=== PATIENT | female | born 1950 | race Caucasian/White ===

== ENCOUNTER 2018-07-20 17:25 | Inpatient (IN) ==
[2018-07-20] MEDS ORDERED: SODIUM CHLORIDE 0.9% 1,000 ML IV STA (18:30)
[2018-07-20 20:08] LABS: Basophils % 0.2 % (0.0-0.8); Hematocrit 32.7 VOL% (35.7-47.0); Hemoglobin 11.8 GM/DL (12.0-16.0); Immature Granulocytes Absolute 0.17 #; Lymphocytes % 5.9 % (21.3-54.2); Mean Corpuscular HGB Conc 36.1 GM/DL (32-36); Mean Corpuscular Hemoglobin 30 PG (27-34); Mean Corpuscular Volume 82.6 FL (87-102); Mean Platelet Volume 10.3 FL (9.6-12.0); Monocytes % 5.9 % (1.7-12.7); Neutrophils # 15.3 10*3/uL (1.4-7.4); Platelet Count 165 T/CUMM (130-400); Red Blood Count 3.96 MC/CUMM (3.8-5.5); Red Cell Distribution Width 14.1 % (9.3-17.3); White Blood Count 17.5 T/CUMM (4-12)
[2018-07-20 20:41] LABS: Albumin 2.8 G/DL (3.4-5.0); Calcium 8.1 MG/DL (8.5-10.1); Osmolality,Calculated 289.8 MOS/KG (273-304); Total Protein 6.1 G/DL (6.4-8.3)
[2018-07-20 20:57] LABS: Apearance,Urine CLEAR (Clear); Bacteria,Urine Occasional /HPF (Few); Bilirubin,Urine Negative (Negative); Blood, Urine Small mg/dL (Negative); Glucose,Urine (UA) Negative (Negative); Hyaline Casts,Urine 3 /LPF (0-3); Ketones,Urine Negative (Negative); Mucus,Urine Occasional /LPF (Occasional); Nitrite,Urine Negative (Negative); Protein,Urine Negative; RBC,Urine 1 /HPF (0-4); Urine Color Straw (Yellow); Urine Specific Gravity 1.005 (1.001-1.035); Urine Urobilinogen < 2.0 EU/DL (0.2-1.0); WBC,Urine 1 /HPF (0-6)
[2018-07-20] MEDS ORDERED: POTASSIUM CHLORIDE INJ 40 MEQ in DEXTROSE 5% LACTATED RINGERS 1,000 ML IV SCH (21:00)
[2018-07-20] MEDS ORDERED: DILTIAZEM 50 MG/10 ML VIAL IV STA (23:10)
[2018-07-20] MEDS ORDERED: SODIUM CHLOR 0.9% KCL 40 MEQ 40 MEQ/1,000 ML BAG IV SCH (23:59)
[2018-07-20] MEDS ORDERED: ACETAMINOPHEN 325 MG TABLET PO PRN (23:59)
[2018-07-20] MEDS ORDERED: ONDANSETRON 4 MG/2 ML VIAL IV PRN (23:59)
[2018-07-21] MEDS ORDERED: SODIUM CHLORIDE 0.9% 1,000 ML IV SCH (05:30)
[2018-07-21 05:40] LABS: Basophils % 0.2 % (0.0-0.8); Eosinophils % 0.2 % (0.00-10.9); Hematocrit 32.6 VOL% (35.7-47.0); Hemoglobin 11.7 GM/DL (12.0-16.0); Immature Granulocytes % 0.6 %; Immature Granulocytes Absolute 0.06 #; Lymphocytes # 1.1 10*3/uL (1.4-4.0); Lymphocytes % 11.4 % (21.3-54.2); Mean Corpuscular HGB Conc 35.9 GM/DL (32-36); Mean Corpuscular Hemoglobin 30 PG (27-34); Mean Corpuscular Volume 82.5 FL (87-102); Mean Platelet Volume 10.5 FL (9.6-12.0); Monocytes # 0.8 10*3/uL (0.11-0.8); Monocytes % 7.7 % (1.7-12.7); Neutrophils # 7.9 10*3/uL (1.4-7.4); Neutrophils % 79.9 % (38.7-73.9); Platelet Count 146 T/CUMM (130-400); Red Blood Count 3.95 MC/CUMM (3.8-5.5); White Blood Count 9.9 T/CUMM (4-12)
[2018-07-21 05:53] LABS: Albumin 2.5 G/DL (3.4-5.0); Bilirubin,Total 1.2 MG/DL (0.2-1.0); Calcium 7.8 MG/DL (8.5-10.1); Osmolality,Calculated 280.2 MOS/KG (273-304); Risk Ratio 4.19; Total Protein 5.7 G/DL (6.4-8.3); VLDL CHOLESTEROL 19.8 MG/DL
[2018-07-21 05:56] LABS: Potassium 1.6 MMOL/L (3.5-5.1)
[2018-07-21 06:01] LABS: Thyroid Stimulating Hormone 0.128 uIU/ml (0.358-3.74)
[2018-07-21] MEDS ORDERED: POTASSIUM CHLORIDE 20 MEQ TABLET PO PRN (06:21)
[2018-07-21] MEDS: LEVOTHYROXINE 100 MCG TABLET PO SCH (06:35)
[2018-07-21] MEDS ORDERED: MAGNESIUM SULF IV ONE (08:00)
[2018-07-21] MEDS ORDERED: POTASSIUM CHLORIDE IV ONE (08:00)
[2018-07-21] MEDS ORDERED: [UNRECOGNIZED DRUG - OTHER] IV ONE (08:00)
[2018-07-21] MEDS ORDERED: NYSTATIN 500,000 UNIT/5 ML UDCUP SWISH/SWAL SCH (09:00)
[2018-07-21] MEDS: CLOTRIMAZOLE 10 MG TROCHE PO SCH ×4 (09:48→21:09)
[2018-07-21] MEDS: ENOXAPARIN 40 MG/0.4 ML SYRINGE SUBCUT SCH (09:48)
[2018-07-21] MEDS: SOLIFENACIN 5 MG TABLET PO SCH (09:48)
[2018-07-21] MEDS: MAGNESIUM SULFATE 1 GM/2 ML VIAL IM SCH ×2 (11:59→18:31)
[2018-07-21] MEDS ORDERED: POTASSIUM CHLORIDE 20 MEQ TABLET PO SCH (12:00)
[2018-07-21] MEDS: POTASSIUM CHLORIDE 20 MEQ/15 ML UDCUP PO SCH ×3 (12:01→21:09)
[2018-07-22] MEDS: POTASSIUM CHLORIDE 20 MEQ/15 ML UDCUP PO SCH ×4 (00:41→17:05)
[2018-07-22 04:57] LABS: Osmolality,Calculated 297.7 MOS/KG (273-304); Potassium 3.3 MMOL/L (3.5-5.1)
[2018-07-22] MEDS: CLOTRIMAZOLE 10 MG TROCHE PO SCH ×5 (05:49→21:02)
[2018-07-22] MEDS: LEVOTHYROXINE 100 MCG TABLET PO SCH (05:49)
[2018-07-22] MEDS ORDERED: POTASSIUM CHLORIDE 20 MEQ TABLET PO SCH (06:30)
[2018-07-22] MEDS: ENOXAPARIN 40 MG/0.4 ML SYRINGE SUBCUT SCH (09:48)
[2018-07-22] MEDS: SOLIFENACIN 5 MG TABLET PO SCH (09:50)
[2018-07-23 04:45] LABS: Calcium 7.3 MG/DL (8.5-10.1); Osmolality,Calculated 276.7 MOS/KG (273-304); Potassium 3.4 MMOL/L (3.5-5.1)
[2018-07-23] MEDS ORDERED: PROPOFOL 200 MG/20 ML VIAL IV ONE (07:00)
[2018-07-23] MEDS ORDERED: ETOMIDATE 20 MG/10 ML VIAL IV ONE (07:00)
[2018-07-23] MEDS ORDERED: LIDOCAINE 2% 5 ML VIAL ONE (07:00)
[2018-07-23] MEDS: CLOTRIMAZOLE 10 MG TROCHE PO SCH ×2 (08:11→10:00)
[2018-07-23] MEDS ORDERED: SODIUM CHLORIDE 0.9% 500 ML IV ONE (11:19)
[2018-07-23] MEDS ORDERED: FLUCONAZOLE 200 MG TABLET PO ONE (12:00)
[2018-07-23] MEDS: SODIUM CHLORIDE 0.9% 1,000 ML IV SCH (12:03)
[2018-07-23] MEDS: SOLIFENACIN 5 MG TABLET PO SCH (12:06)
[2018-07-23] MEDS: LEVOTHYROXINE 100 MCG TABLET PO SCH (12:07)
[2018-07-23] MEDS: PANTOPRAZOLE 40 MG TABLET PO SCH (12:07)
[2018-07-23] MEDS: NYSTATIN 500,000 UNIT/5 ML UDCUP SWISH/SWAL SCH ×3 (13:52→21:17)
[2018-07-23] MEDS: POTASSIUM CHLORIDE 10 MEQ TABLET PO SCH (21:13)
[2018-07-24] MEDS: SODIUM CHLORIDE 0.9% 1,000 ML IV SCH ×2 (01:01→17:16)
[2018-07-24 04:52] LABS: Basophils % 0.3 % (0.0-0.8); Eosinophils # 0.2 10*3/uL (0.0-0.87); Hematocrit 30.6 VOL% (35.7-47.0); Hemoglobin 10.1 GM/DL (12.0-16.0); Immature Granulocytes % 1.5 %; Immature Granulocytes Absolute 0.12 #; Lymphocytes # 1.5 10*3/uL (1.4-4.0); Mean Corpuscular Hemoglobin 30 PG (27-34); Mean Corpuscular Volume 90.8 FL (87-102); Mean Platelet Volume 11.4 FL (9.6-12.0); Monocytes # 0.4 10*3/uL (0.11-0.8); Monocytes % 4.9 % (1.7-12.7); Neutrophils # 5.7 10*3/uL (1.4-7.4); Neutrophils % 72.3 % (38.7-73.9); Platelet Count 104 T/CUMM (130-400); Red Blood Count 3.37 MC/CUMM (3.8-5.5); Red Cell Distribution Width 15.1 % (9.3-17.3); White Blood Count 7.9 T/CUMM (4-12)
[2018-07-24 05:09] LABS: Calcium 6.7 MG/DL (8.5-10.1); Osmolality,Calculated 274.7 MOS/KG (273-304); Potassium 2.9 MMOL/L (3.5-5.1)
[2018-07-24] MEDS ORDERED: POTASSIUM CHLORIDE RIDER 10 MEQ in PREMIX 1 EACH IV PRN (05:37)
[2018-07-24] MEDS ORDERED: MAGNESIUM SULF RIDER 2 GM in PREMIX 1 EACH IV PRN (05:40)
[2018-07-24] MEDS ORDERED: MAGNESIUM SULF RIDER 4 GM in PREMIX 1 EACH IV PRN (05:40)
[2018-07-24] MEDS: LEVOTHYROXINE 75 MCG TABLET PO SCH (05:51)
[2018-07-24] MEDS: SOLIFENACIN 5 MG TABLET PO SCH (10:20)
[2018-07-24] MEDS: FLUCONAZOLE 100 MG TABLET PO SCH (10:20)
[2018-07-24] MEDS: PANTOPRAZOLE 40 MG TABLET PO SCH (10:20)
[2018-07-24] MEDS: NYSTATIN 500,000 UNIT/5 ML UDCUP SWISH/SWAL SCH ×4 (10:20→20:33)
[2018-07-24] MEDS: POTASSIUM CHLORIDE 10 MEQ TABLET PO SCH ×3 (10:20→20:33)
[2018-07-24] MEDS ORDERED: MAGNESIUM SULF INJ 3 GM in SODIUM CHLORIDE 0.9% 100 ML IV ONE (11:00)
[2018-07-24] MEDS ORDERED: TUBERCULIN SKIN TEST 0.1 ML SYRINGE INTRADERM ONE (11:00)
[2018-07-24] MEDS ORDERED: POTASSIUM CHLORIDE 20 MEQ/15 ML UDCUP PO ONE ×2 (12:00→16:00)
[2018-07-24] MEDS: MAGNESIUM OXIDE 400 MG TABLET PO SCH ×2 (16:25→20:33)
[2018-07-25] MEDS: SODIUM CHLORIDE 0.9% 1,000 ML IV SCH (05:19)
[2018-07-25] MEDS: LEVOTHYROXINE 75 MCG TABLET PO SCH (05:55)
[2018-07-25 06:46] LABS: Calcium 7.1 MG/DL (8.5-10.1); Osmolality,Calculated 276.5 MOS/KG (273-304); Potassium 3.7 MMOL/L (3.5-5.1)
[2018-07-25] MEDS: SOLIFENACIN 5 MG TABLET PO SCH (09:20)
[2018-07-25] MEDS: FLUCONAZOLE 100 MG TABLET PO SCH (09:20)
[2018-07-25] MEDS: MAGNESIUM OXIDE 400 MG TABLET PO SCH (09:21)
[2018-07-25] MEDS: POTASSIUM CHLORIDE 10 MEQ TABLET PO SCH (09:21)
[2018-07-25] MEDS: PANTOPRAZOLE 40 MG TABLET PO SCH (09:22)
[2018-07-25] MEDS: NYSTATIN 500,000 UNIT/5 ML UDCUP SWISH/SWAL SCH (09:23)
[2018-07-25 11:25] VITALS: BP 95/45
== END 2018-07-25 14:23 | disposition swing bed (61) | DRG 641 ==
LOC: EDBD → EDUNIT# → N.ED 17:25 → N.EDINP 22:47 → SUATTDRO 22:47 → N.2E 23:41
PROVIDERS: ADMIT Internal Medicine Cardiovascular Disease; ATTEND Internal Medicine

== ENCOUNTER 2018-09-02 20:08 | Inpatient (IN) ==
[2018-09-02] MEDS ORDERED: PANTOPRAZOLE 40 MG VIAL IV STA (20:27)
[2018-09-02] MEDS ORDERED: MORPHINE 4 MG/1 ML VIAL IV STA (20:27)
[2018-09-02] MEDS ORDERED: SODIUM CHLORIDE 0.9% 500 ML IV STA (20:27)
[2018-09-02] MEDS ORDERED: ONDANSETRON 4 MG/2 ML VIAL IV STA (20:27)
[2018-09-02 21:09] LABS: Basophils % 0.2 % (0.0-0.8); Eosinophils # 0.1 10*3/uL (0.0-0.87); Eosinophils % 0.9 % (0.00-10.9); Hematocrit 31.2 VOL% (35.7-47.0); Hemoglobin 10.4 GM/DL (12.0-16.0); Immature Granulocytes % 1.5 %; Immature Granulocytes Absolute 0.19 #; Lymphocytes # 1.1 10*3/uL (1.4-4.0); Lymphocytes % 8.2 % (21.3-54.2); Mean Corpuscular HGB Conc 33.3 GM/DL (32-36); Mean Corpuscular Volume 88.1 FL (87-102); Mean Platelet Volume 9.3 FL (9.6-12.0); Monocytes % 5.3 % (1.7-12.7); Neutrophils % 83.9 % (38.7-73.9); Platelet Count 271 T/CUMM (130-400); Red Blood Count 3.54 MC/CUMM (3.8-5.5); Red Cell Distribution Width 14.3 % (9.3-17.3); White Blood Count 12.9 T/CUMM (4-12)
[2018-09-02 21:17] LABS: Apearance,Urine CLEAR (Clear); Bacteria,Urine Occasional /HPF (Few); Bilirubin,Urine Negative (Negative); Blood, Urine Small mg/dL (Negative); Glucose,Urine (UA) 50 mg/dL (Negative); Hyaline Casts,Urine 5 /LPF (0-3); Ketones,Urine 5 mg/dL (Negative); Mucus,Urine Few /LPF (Occasional); Nitrite,Urine Negative (Negative); Protein,Urine Negative; RBC,Urine <1 /HPF (0-4); Urine Color Yellow (Yellow); Urine Specific Gravity 1.012 (1.001-1.035); Urine Urobilinogen < 2.0 EU/DL (0.2-1.0); WBC,Urine 1 /HPF (0-6)
[2018-09-02 21:34] LABS: Bilirubin,Total 0.4 MG/DL (0.2-1.0); Calcium 8.7 MG/DL (8.5-10.1); Osmolality,Calculated 276.5 MOS/KG (273-304); Total Protein 5.9 G/DL (6.4-8.3)
[2018-09-03] MEDS ORDERED: MORPHINE 4 MG/1 ML VIAL IV PRN (00:11)
[2018-09-03] MEDS ORDERED: NICOTINE 21 MG/24 HR PATCH TRANSDERM PRN (00:11)
[2018-09-03] MEDS ORDERED: MAGNESIUM SULF RIDER 4 GM in PREMIX 1 EACH IV PRN (00:11)
[2018-09-03] MEDS ORDERED: ONDANSETRON 4 MG/2 ML VIAL IV PRN (00:11)
[2018-09-03] MEDS ORDERED: SODIUM CHLORIDE 0.9% 1,000 ML IV SCH (00:30)
[2018-09-03] MEDS: POTASSIUM CHLORIDE RIDER 10 MEQ in PREMIX 1 EACH IV PRN ×7 (03:32→16:23)
[2018-09-03] MEDS: PANTOPRAZOLE 40 MG VIAL IV SCH ×3 (03:37→20:44)
[2018-09-03 04:44] LABS: Basophils % 0.2 % (0.0-0.8); Eosinophils # 0.1 10*3/uL (0.0-0.87); Eosinophils % 0.9 % (0.00-10.9); Hematocrit 30.6 VOL% (35.7-47.0); Hemoglobin 10.3 GM/DL (12.0-16.0); Immature Granulocytes % 1.2 %; Immature Granulocytes Absolute 0.15 #; Lymphocytes # 0.7 10*3/uL (1.4-4.0); Mean Corpuscular HGB Conc 33.7 GM/DL (32-36); Mean Corpuscular Volume 88.4 FL (87-102); Mean Platelet Volume 9.6 FL (9.6-12.0); Monocytes % 5.5 % (1.7-12.7); Neutrophils % 86.2 % (38.7-73.9); Platelet Count 239 T/CUMM (130-400); Red Blood Count 3.46 MC/CUMM (3.8-5.5); Red Cell Distribution Width 14.3 % (9.3-17.3); White Blood Count 12.2 T/CUMM (4-12)
[2018-09-03 05:31] LABS: Alanine Aminotransferase < 9 U/L (13-56); Albumin 2.7 G/DL (3.4-5.0); Alkaline Phosphatase 78 U/L (45-117); Aspartate Amino Transferase 9 U/L (0-37); Blood Urea Nitrogen 9 MG/DL (7-18); Calcium 8.6 MG/DL (8.5-10.1); Glucose 105 MG/DL (74-106); Total Protein 5.9 G/DL (6.4-8.3)
[2018-09-03] MEDS ORDERED: POTASSIUM CHLORIDE INJ 40 MEQ in SODIUM CHLORIDE 0.9% 1,000 ML IV SCH (07:33)
[2018-09-03] MEDS ORDERED: SODIUM CHLOR 0.9% KCL 40 MEQ 40 MEQ/1,000 ML BAG IV SCH (08:00)
[2018-09-03] MEDS: SODIUM CHLOR 0.9% KCL 20 MEQ 20 MEQ/1,000 ML BAG IV SCH ×2 (11:32→20:44)
[2018-09-04] MEDS: POTASSIUM CHLORIDE RIDER 10 MEQ in PREMIX 1 EACH IV PRN ×2 (02:24→06:34)
[2018-09-04 05:54] LABS: Basophils % 0.2 % (0.0-0.8); Eosinophils # 0.1 10*3/uL (0.0-0.87); Eosinophils % 1.2 % (0.00-10.9); Hematocrit 28.8 VOL% (35.7-47.0); Hemoglobin 9.2 GM/DL (12.0-16.0); Immature Granulocytes % 1.3 %; Immature Granulocytes Absolute 0.13 #; Lymphocytes # 0.7 10*3/uL (1.4-4.0); Lymphocytes % 7.3 % (21.3-54.2); Mean Corpuscular HGB Conc 31.9 GM/DL (32-36); Mean Corpuscular Volume 91.1 FL (87-102); Mean Platelet Volume 9.5 FL (9.6-12.0); Monocytes % 4.9 % (1.7-12.7); Neutrophils % 85.1 % (38.7-73.9); Platelet Count 185 T/CUMM (130-400); Red Blood Count 3.16 MC/CUMM (3.8-5.5); Red Cell Distribution Width 14.6 % (9.3-17.3); White Blood Count 9.9 T/CUMM (4-12)
[2018-09-04] MEDS: SODIUM CHLOR 0.9% KCL 20 MEQ 20 MEQ/1,000 ML BAG IV SCH (06:05)
[2018-09-04 06:12] LABS: Calcium 7.9 MG/DL (8.5-10.1); Osmolality,Calculated 278.1 MOS/KG (273-304)
[2018-09-04 06:24] LABS: Free T4 (Free Thyroxine) 1.44 NG/DL (0.76-1.46); Thyroid Stimulating Hormone 0.204 uIU/ml (0.358-3.74)
[2018-09-04] MEDS: PANTOPRAZOLE 40 MG VIAL IV SCH (08:17)
[2018-09-04] MEDS: POTASSIUM CHLORIDE INJ 40 MEQ in DEXTROSE 5% LACTATED RINGERS 1,000 ML IV SCH ×3 (08:17→23:29)
[2018-09-04] MEDS: FAMOTIDINE 20 MG/2 ML VIAL IV SCH (15:33)
[2018-09-04 16:59] LABS: Apearance,Urine CLEAR (Clear); Bacteria,Urine Occasional /HPF (Few); Bilirubin,Urine Negative (Negative); Blood, Urine Small mg/dL (Negative); Glucose,Urine (UA) Negative (Negative); Hyaline Casts,Urine 7 /LPF (0-3); Ketones,Urine 5 mg/dL (Negative); Mucus,Urine Occasional /LPF (Occasional); Nitrite,Urine Negative (Negative); Protein,Urine Negative; RBC,Urine 3 /HPF (0-4); Squamous Epithelial Cell,Urine Occasional /HPF (0-10); Urine Color Yellow (Yellow); Urine Urobilinogen < 2.0 EU/DL (0.2-1.0); WBC,Urine 4 /HPF (0-6)
[2018-09-05] MEDS: FAMOTIDINE 20 MG/2 ML VIAL IV SCH ×2 (03:13→14:00)
[2018-09-05 06:36] LABS: Calcium 8.1 MG/DL (8.5-10.1); Osmolality,Calculated 291.4 MOS/KG (273-304)
[2018-09-05] MEDS: POTASSIUM CHLORIDE INJ 40 MEQ in DEXTROSE 5% LACTATED RINGERS 1,000 ML IV SCH ×2 (06:46→16:49)
[2018-09-05] MEDS: POTASSIUM CHLORIDE 20 MEQ TABLET PO SCH ×3 (07:30→16:49)
[2018-09-05] MEDS: MAGNESIUM SULF RIDER 2 GM in PREMIX 1 EACH IV PRN (07:30)
[2018-09-05] MEDS ORDERED: MAGNESIUM SULF RIDER 2 GM in PREMIX 1 EACH IV ONE (09:48)
[2018-09-05] MEDS ORDERED: POTASSIUM CHLORIDE 20 MEQ TABLET PO ONE ×2 (13:21→21:00)
[2018-09-05] MEDS ORDERED: POTASSIUM PHOSPHATE 30 MMOL in SODIUM CHLORIDE 0.9% 250 ML IV ONE (15:00)
[2018-09-05] MEDS ORDERED: ACETAMINOPHEN 325 MG TABLET PO PRN (16:03)
[2018-09-05] MEDS: DEXT 5% NACL 0.45% KCL 20 MEQ 20 MEQ/1,000 ML BAG IV SCH (17:56)
[2018-09-05] MEDS: SIMVASTATIN 20 MG TABLET PO SCH (20:47)
[2018-09-06] MEDS: FAMOTIDINE 20 MG/2 ML VIAL IV SCH ×2 (03:20→14:22)
[2018-09-06] MEDS: LEVOTHYROXINE 75 MCG TABLET PO SCH (05:56)
[2018-09-06 06:02] LABS: Basophils % 0.4 % (0.0-0.8); Eosinophils # 0.1 10*3/uL (0.0-0.87); Eosinophils % 0.8 % (0.00-10.9); Hematocrit 30.7 VOL% (35.7-47.0); Hemoglobin 10.2 GM/DL (12.0-16.0); Immature Granulocytes % 1.1 %; Immature Granulocytes Absolute 0.09 #; Lymphocytes # 0.7 10*3/uL (1.4-4.0); Lymphocytes % 7.8 % (21.3-54.2); Mean Corpuscular HGB Conc 33.2 GM/DL (32-36); Mean Corpuscular Volume 89.8 FL (87-102); Mean Platelet Volume 10.3 FL (9.6-12.0); Neutrophils % 85.9 % (38.7-73.9); Platelet Count 199 T/CUMM (130-400); Red Blood Count 3.42 MC/CUMM (3.8-5.5); Red Cell Distribution Width 15.2 % (9.3-17.3); White Blood Count 8.6 T/CUMM (4-12)
[2018-09-06 06:31] LABS: Calcium 7.8 MG/DL (8.5-10.1); Osmolality,Calculated 288.6 MOS/KG (273-304)
[2018-09-06] MEDS ORDERED: POTASSIUM CHLORIDE INJ 40 MEQ in DEXTROSE 5% NACL 0.22% 1,000 ML IV SCH (07:00)
[2018-09-06] MEDS: POTASSIUM CHLORIDE 20 MEQ TABLET PO SCH ×4 (07:42→20:40)
[2018-09-06] MEDS: DEXT 5% NACL 0.45% KCL 20 MEQ 20 MEQ/1,000 ML BAG IV SCH (07:43)
[2018-09-06] MEDS ORDERED: POTASSIUM CHLORIDE 20 MEQ TABLET PO SCH (15:00)
[2018-09-06 15:36] LABS: Calcium 7.5 MG/DL (8.5-10.1)
[2018-09-06] MEDS ORDERED: POTASSIUM CHLORIDE 20 MEQ TABLET PO ONE (15:40)
[2018-09-06] MEDS: SIMVASTATIN 20 MG TABLET PO SCH (20:40)
[2018-09-07] MEDS: FAMOTIDINE 20 MG/2 ML VIAL IV SCH ×2 (03:56→14:37)
[2018-09-07 05:20] LABS: Basophils % 0.3 % (0.0-0.8); Eosinophils # 0.1 10*3/uL (0.0-0.87); Eosinophils % 1.4 % (0.00-10.9); Hematocrit 32.3 VOL% (35.7-47.0); Hemoglobin 10.1 GM/DL (12.0-16.0); Immature Granulocytes % 1.4 %; Immature Granulocytes Absolute 0.12 #; Mean Corpuscular HGB Conc 31.3 GM/DL (32-36); Mean Corpuscular Volume 93.6 FL (87-102); Mean Platelet Volume 9.8 FL (9.6-12.0); Monocytes % 4.5 % (1.7-12.7); Neutrophils % 80.4 % (38.7-73.9); Platelet Count 201 T/CUMM (130-400); Red Blood Count 3.45 MC/CUMM (3.8-5.5); Red Cell Distribution Width 15.5 % (9.3-17.3); White Blood Count 8.6 T/CUMM (4-12)
[2018-09-07 05:42] LABS: Calcium 7.7 MG/DL (8.5-10.1); Osmolality,Calculated 286.6 MOS/KG (273-304)
[2018-09-07] MEDS: LEVOTHYROXINE 75 MCG TABLET PO SCH (05:55)
[2018-09-07] MEDS: MAGNESIUM SULF RIDER 2 GM in PREMIX 1 EACH IV PRN (10:03)
[2018-09-07] MEDS: POTASSIUM CHLORIDE 20 MEQ TABLET PO SCH ×2 (10:03→20:39)
[2018-09-07 17:09] LABS: Sodium 24 Hr Ur Result 83 MMOL/L (40-220); Total Volume,Urine 600 ML (400-2000)
[2018-09-07] MEDS: SIMVASTATIN 20 MG TABLET PO SCH (20:39)
[2018-09-08] MEDS: LEVOTHYROXINE 75 MCG TABLET PO SCH (05:50)
[2018-09-08 07:13] LABS: Basophils % 0.2 % (0.0-0.8); Eosinophils # 0.1 10*3/uL (0.0-0.87); Eosinophils % 1.1 % (0.00-10.9); Hematocrit 30.9 VOL% (35.7-47.0); Hemoglobin 9.7 GM/DL (12.0-16.0); Immature Granulocytes % 1.3 %; Immature Granulocytes Absolute 0.12 #; Lymphocytes # 1.2 10*3/uL (1.4-4.0); Lymphocytes % 12.7 % (21.3-54.2); Mean Corpuscular HGB Conc 31.4 GM/DL (32-36); Mean Corpuscular Volume 92.8 FL (87-102); Mean Platelet Volume 9.6 FL (9.6-12.0); Monocytes % 4.6 % (1.7-12.7); Neutrophils % 80.1 % (38.7-73.9); Platelet Count 177 T/CUMM (130-400); Red Blood Count 3.33 MC/CUMM (3.8-5.5); Red Cell Distribution Width 15.1 % (9.3-17.3); White Blood Count 9.3 T/CUMM (4-12)
[2018-09-08 07:35] LABS: Band Neutrophils 1 % (0-10); Eosinophils 1 % (0-10); Lymphocytes 9 % (20-55); Platelet Estimate Adequate; Segmented Neutrophils 88 % (50-85); Total Cells Counted 100
[2018-09-08 08:35] LABS: Calcium 7.6 MG/DL (8.5-10.1); Osmolality,Calculated 278.1 MOS/KG (273-304)
[2018-09-08] MEDS: POTASSIUM CHLORIDE 20 MEQ TABLET PO SCH ×2 (09:35→22:12)
[2018-09-08] MEDS: FAMOTIDINE 20 MG/2 ML VIAL IV SCH ×2 (09:36→22:12)
[2018-09-08] MEDS: LOPERAMIDE 2 MG CAPSULE PO SCH ×2 (09:46→22:12)
[2018-09-08] MEDS: POTASSIUM CHLORIDE INJ 40 MEQ in SODIUM CHLORIDE 0.45% 1,000 ML IV SCH ×2 (11:20→22:11)
[2018-09-08] MEDS ORDERED: POTASSIUM CHLORIDE 20 MEQ TABLET PO ONE (14:00)
[2018-09-08] MEDS: SIMVASTATIN 20 MG TABLET PO SCH (22:12)
[2018-09-09 05:39] LABS: Basophils % 0.3 % (0.0-0.8); Eosinophils # 0.1 10*3/uL (0.0-0.87); Eosinophils % 1.5 % (0.00-10.9); Hematocrit 29.6 VOL% (35.7-47.0); Hemoglobin 9.4 GM/DL (12.0-16.0); Immature Granulocytes % 1.2 %; Immature Granulocytes Absolute 0.11 #; Lymphocytes # 1.4 10*3/uL (1.4-4.0); Lymphocytes % 14.4 % (21.3-54.2); Mean Corpuscular HGB Conc 31.8 GM/DL (32-36); Mean Corpuscular Volume 93.1 FL (87-102); Mean Platelet Volume 10.3 FL (9.6-12.0); Monocytes % 5.7 % (1.7-12.7); Neutrophils % 76.9 % (38.7-73.9); Platelet Count 182 T/CUMM (130-400); Red Blood Count 3.18 MC/CUMM (3.8-5.5); Red Cell Distribution Width 15.3 % (9.3-17.3); White Blood Count 9.5 T/CUMM (4-12)
[2018-09-09] MEDS: LEVOTHYROXINE 75 MCG TABLET PO SCH (06:01)
[2018-09-09 06:18] LABS: Calcium 7.7 MG/DL (8.5-10.1)
[2018-09-09] MEDS: POTASSIUM CHLORIDE INJ 40 MEQ in SODIUM CHLORIDE 0.45% 1,000 ML IV SCH ×3 (09:11→20:44)
[2018-09-09] MEDS: LOPERAMIDE 2 MG CAPSULE PO SCH (09:11)
[2018-09-09] MEDS: FAMOTIDINE 20 MG/2 ML VIAL IV SCH ×2 (09:11→20:38)
[2018-09-09] MEDS: POTASSIUM CHLORIDE 20 MEQ TABLET PO SCH ×2 (09:11→20:38)
[2018-09-09] MEDS: METOCLOPRAMIDE 10 MG/2 ML VIAL IV SCH (17:28)
[2018-09-09] MEDS: SIMVASTATIN 20 MG TABLET PO SCH (20:38)
[2018-09-10] MEDS: METOCLOPRAMIDE 10 MG/2 ML VIAL IV SCH ×4 (00:45→18:28)
[2018-09-10 05:45] LABS: Basophils % 0.2 % (0.0-0.8); Eosinophils # 0.1 10*3/uL (0.0-0.87); Hematocrit 29.5 VOL% (35.7-47.0); Hemoglobin 9.5 GM/DL (12.0-16.0); Immature Granulocytes % 1.6 %; Immature Granulocytes Absolute 0.15 #; Lymphocytes % 10.9 % (21.3-54.2); Mean Corpuscular HGB Conc 32.2 GM/DL (32-36); Mean Corpuscular Volume 92.8 FL (87-102); Mean Platelet Volume 10.2 FL (9.6-12.0); Monocytes % 4.9 % (1.7-12.7); Neutrophils % 81.4 % (38.7-73.9); Platelet Count 166 T/CUMM (130-400); Red Blood Count 3.18 MC/CUMM (3.8-5.5); Red Cell Distribution Width 15.2 % (9.3-17.3); White Blood Count 9.4 T/CUMM (4-12)
[2018-09-10 06:08] LABS: Calcium 7.5 MG/DL (8.5-10.1); Osmolality,Calculated 274.4 MOS/KG (273-304)
[2018-09-10] MEDS: LEVOTHYROXINE 75 MCG TABLET PO SCH (06:35)
[2018-09-10] MEDS: POTASSIUM CHLORIDE INJ 40 MEQ in SODIUM CHLORIDE 0.45% 1,000 ML IV SCH ×4 (06:36→20:35)
[2018-09-10] MEDS: FAMOTIDINE 20 MG/2 ML VIAL IV SCH ×2 (09:04→20:33)
[2018-09-10] MEDS: POTASSIUM CHLORIDE 20 MEQ TABLET PO SCH ×2 (09:04→20:33)
[2018-09-10] MEDS: MAGNESIUM SULF RIDER 2 GM in PREMIX 1 EACH IV PRN (10:39)
[2018-09-10] MEDS: SIMVASTATIN 20 MG TABLET PO SCH (20:33)
[2018-09-11] MEDS: METOCLOPRAMIDE 10 MG/2 ML VIAL IV SCH ×3 (00:04→11:51)
[2018-09-11] MEDS: POTASSIUM CHLORIDE INJ 40 MEQ in SODIUM CHLORIDE 0.45% 1,000 ML IV SCH (05:42)
[2018-09-11] MEDS: LEVOTHYROXINE 75 MCG TABLET PO SCH (05:43)
[2018-09-11] MEDS: FAMOTIDINE 20 MG/2 ML VIAL IV SCH (10:13)
[2018-09-11] MEDS: POTASSIUM CHLORIDE 20 MEQ TABLET PO SCH (10:13)
[2018-09-11 11:48] VITALS: BP 108/65
== END 2018-09-11 16:20 | DRG 389 ==
LOC: EDUNIT# → EDBD → N.ED 20:08 → N.EDINP 09-03 00:11 → SUATTDRO 09-03 00:11 → N.5E 09-03 01:03
PROVIDERS: ADMIT Internal Medicine; ATTEND Internal Medicine

== ENCOUNTER 2019-05-26 00:39 | Observation (INO) ==
[2019-05-26] MEDS ORDERED: ALUM/MAG/SIMETH/LIDO VISC 1:1 30 ML BOTTLE PO STA (01:06)
[2019-05-26] MEDS ORDERED: SODIUM CHLORIDE 0.9% 500 ML IV STA (01:06)
[2019-05-26] MEDS ORDERED: ONDANSETRON 4 MG/2 ML VIAL IV STA (01:06)
[2019-05-26 01:43] LABS: Basophils % 0.3 % (0.0-0.8); Eosinophils # 0.1 10*3/uL (0.0-0.87); Hematocrit 38.8 VOL% (35.7-47.0); Hemoglobin 13.7 GM/DL (12.0-16.0); Immature Granulocytes % 0.9 %; Immature Granulocytes Absolute 0.09 #; Lymphocytes # 1.2 10*3/uL (1.4-4.0); Mean Corpuscular HGB Conc 35.3 GM/DL (32-36); Mean Corpuscular Volume 87.4 FL (87-102); Mean Platelet Volume 9.8 FL (9.6-12.0); Neutrophils % 78.8 % (38.7-73.9); Platelet Count 154 T/CUMM (130-400); Red Blood Count 4.44 MC/CUMM (3.8-5.5); Red Cell Distribution Width 13.2 % (9.3-17.3); White Blood Count 10.3 T/CUMM (4-12)
[2019-05-26 02:08] LABS: Albumin 3.1 G/DL (3.4-5.0); Bilirubin,Total 0.6 MG/DL (0.2-1.0); Calcium 8.6 MG/DL (8.5-10.1); Osmolality,Calculated 273.1 MOS/KG (273-304); Total Protein 6.6 G/DL (6.4-8.3)
[2019-05-26 02:11] LABS: Apearance,Urine CLEAR (Clear); Bilirubin,Urine Negative (Negative); Blood, Urine Negative (Negative); Glucose,Urine (UA) Negative (Negative); Ketones,Urine Negative (Negative); Nitrite,Urine Negative (Negative); Protein,Urine Negative; RBC,Urine <1 /HPF (0-4); Urine Color Straw (Yellow); Urine Specific Gravity 1.009 (1.001-1.035); Urine Urobilinogen < 2.0 EU/DL (0.2-1.0); WBC,Urine 1 /HPF (0-6)
[2019-05-26] MEDS ORDERED: POTASSIUM CHLORIDE 20 MEQ TABLET PO STA (02:35)
[2019-05-26] MEDS ORDERED: ONDANSETRON 4 MG/2 ML VIAL IV PRN (02:42)
[2019-05-26] MEDS ORDERED: MORPHINE 4 MG/1 ML VIAL IV PRN (02:42)
[2019-05-26] MEDS ORDERED: NICOTINE 21 MG/24 HR PATCH TRANSDERM PRN (02:42)
[2019-05-26] MEDS ORDERED: POTASSIUM CHLORIDE RIDER 10 MEQ in PREMIX 1 EACH IV PRN (02:42)
[2019-05-26] MEDS ORDERED: SODIUM CHLORIDE 0.9% 1,000 ML IV SCH (03:00)
[2019-05-26] MEDS ORDERED: SODIUM PHOSPHATE ENEMA 133 ML BOTTLE RECTAL ONE (06:25)
[2019-05-26] MEDS ORDERED: BISACODYL 5 MG TABLET PO ONE (06:25)
[2019-05-26] MEDS ORDERED: LINACLOTIDE 145 MCG CAPSULE PO SCH (07:30)
[2019-05-26] MEDS ORDERED: ACETAMINOPHEN 325 MG TABLET PO PRN (08:44)
[2019-05-26] MEDS ORDERED: PANTOPRAZOLE 40 MG TABLET PO SCH (09:00)
[2019-05-26] MEDS ORDERED: SOLIFENACIN 5 MG TABLET PO SCH (09:00)
[2019-05-26] MEDS: MAGNESIUM OXIDE 400 MG TABLET PO SCH ×2 (09:50→14:09)
[2019-05-26] MEDS: POTASSIUM CHLORIDE 20 MEQ PACK PO SCH ×2 (09:51→14:09)
[2019-05-26 11:43] VITALS: BP 108/50
[2019-05-26 12:58] LABS: Bilirubin,Total 0.4 MG/DL (0.2-1.0); Calcium 8.4 MG/DL (8.5-10.1); Osmolality,Calculated 273.8 MOS/KG (273-304); Total Protein 6.6 G/DL (6.4-8.3)
[2019-05-26] MEDS ORDERED: LACTULOSE 20 GM/30 ML UDCUP PO ONE (14:01)
[2019-05-26] MEDS ORDERED: SIMVASTATIN 10 MG TABLET PO SCH (21:00)
[2019-05-27] MEDS ORDERED: LEVOTHYROXINE 75 MCG TABLET PO SCH (06:30)
== END 2019-05-26 15:46 ==
LOC: EDUNIT# → N.5E 00:39 → N.ED 00:39 → SUATTDRO 02:42 → N.5E 04:15
PROVIDERS: ADMIT Internal Medicine; ATTEND Internal Medicine

== ENCOUNTER 2019-06-23 20:17 | Inpatient (IN) ==
[2019-06-23] MEDS ORDERED: METOCLOPRAMIDE 10 MG/2 ML VIAL IV STA (20:44)
[2019-06-23] MEDS ORDERED: ONDANSETRON 4 MG/2 ML VIAL IV STA (20:44)
[2019-06-23] MEDS ORDERED: DICYCLOMINE 20 MG/2 ML AMP IM ONE (20:44)
[2019-06-23 21:08] LABS: Alanine Aminotransferase 14 U/L (13-56); Alkaline Phosphatase 60 U/L (45-117); Amylase 33 U/L (25-115); Aspartate Amino Transferase 15 U/L (0-37); Blood Urea Nitrogen 17 MG/DL (7-18); Calcium 7.9 MG/DL (8.5-10.1); Estimated Glom Filtration Rate 54 ML/MIN; Glucose 137 MG/DL (74-106); Osmolality,Calculated 278.7 MOS/KG (273-304); Total Protein 6.3 G/DL (6.4-8.3); Troponin I < 0.015 NG/ML (0.00-0.045)
[2019-06-23] MEDS ORDERED: ALBUTEROL/IPRATROPIUM 3 ML NEB RESP TX STA (21:25)
[2019-06-23] MEDS ORDERED: AMPICILLIN/SULBACTAM 3,000 MG in SODIUM CHLORIDE 0.9% 100 ML IV STA (21:26)
[2019-06-23] MEDS ORDERED: ONDANSETRON 4 MG/2 ML VIAL IV PRN (21:55)
[2019-06-23] MEDS ORDERED: ALBUTEROL 2.5 MG/3 ML NEB RESP TX PRN (21:55)
[2019-06-23] MEDS ORDERED: MORPHINE 4 MG/1 ML VIAL IV PRN (21:55)
[2019-06-23] MEDS ORDERED: guaiFENesin/DM ER 600-30 MG TABLET PO PRN (21:55)
[2019-06-23] MEDS ORDERED: NICOTINE 21 MG/24 HR PATCH TRANSDERM PRN (21:55)
[2019-06-23] MEDS ORDERED: PROMETHAZINE 25 MG/1 ML VIAL IM PRN (21:55)
[2019-06-23] MEDS ORDERED: hydrALAZINE 20 MG/1 ML VIAL IV PRN (21:55)
[2019-06-23] MEDS ORDERED: MAGNESIUM SULF RIDER 2 GM in PREMIX 1 EACH IV PRN (22:00)
[2019-06-23] MEDS ORDERED: SODIUM CHLORIDE 0.9% 2,000 ML IV ONE (23:13)
[2019-06-23] MEDS: MEROPENEM 500 MG in SODIUM CHLORIDE 0.9% 100 ML IV SCH (23:50)
[2019-06-24 00:56] LABS: Basophils % 0.1 % (0.0-0.8); Hematocrit 34.6 VOL% (35.7-47.0); Hemoglobin 11.7 GM/DL (12.0-16.0); Immature Granulocytes Absolute 0.19 #; Lymphocytes # 0.7 10*3/uL (1.4-4.0); Lymphocytes % 3.5 % (21.3-54.2); Mean Corpuscular HGB Conc 33.8 GM/DL (32-36); Mean Corpuscular Volume 90.1 FL (87-102); Mean Platelet Volume 10.6 FL (9.6-12.0); Monocytes % 5.4 % (1.7-12.7); Platelet Count 131 T/CUMM (130-400); Red Blood Count 3.84 MC/CUMM (3.8-5.5); Red Cell Distribution Width 13.7 % (9.3-17.3); White Blood Count 19.3 T/CUMM (4-12)
[2019-06-24] MEDS ORDERED: VANCOMYCIN INJ 1,000 MG in SODIUM CHLORIDE 0.9% 250 ML IV SCH (01:00)
[2019-06-24] MEDS: POTASSIUM CHLORIDE 20 MEQ TABLET PO PRN ×2 (01:03→08:51)
[2019-06-24] MEDS: ACETAMINOPHEN 325 MG TABLET PO PRN ×2 (01:03→22:10)
[2019-06-24 01:10] LABS: Albumin 2.3 G/DL (3.4-5.0); Bilirubin,Total 0.8 MG/DL (0.2-1.0); Calcium 7.6 MG/DL (8.5-10.1); Osmolality,Calculated 280.5 MOS/KG (273-304); Risk Ratio 3.08; Total Protein 5.6 G/DL (6.4-8.3); VLDL CHOLESTEROL 11.4 MG/DL
[2019-06-24 01:18] LABS: Band Neutrophils 1 % (0-10); Lymphocytes 4 % (20-55); Platelet Estimate Normal; Segmented Neutrophils 92 % (50-85); Total Cells Counted 100
[2019-06-24 01:19] LABS: Microcytosis Slight
[2019-06-24 01:20] LABS: Polychromasia Slight
[2019-06-24] MEDS: DEXT 5% NACL 0.9% KCL 40 MEQ 40 MEQ/1,000 ML BAG IV SCH ×2 (01:41→12:00)
[2019-06-24] MEDS: DOCUSATE SODIUM 100 MG CAPSULE PO SCH ×3 (01:54→21:21)
[2019-06-24] MEDS: LACTULOSE 20 GM/30 ML UDCUP PO SCH ×7 (01:54→22:08)
[2019-06-24] MEDS: POTASSIUM CHLORIDE 10 MEQ TABLET PO SCH ×3 (01:58→22:08)
[2019-06-24] MEDS ORDERED: AZITHROMYCIN INJ 500 MG in SODIUM CHLORIDE 0.9% 250 ML IV SCH (02:30)
[2019-06-24] MEDS: MEROPENEM 500 MG in SODIUM CHLORIDE 0.9% 100 ML IV SCH ×3 (05:27→18:48)
[2019-06-24 05:50] LABS: Basophils % 0.1 % (0.0-0.8); Hematocrit 34.6 VOL% (35.7-47.0); Hemoglobin 11.4 GM/DL (12.0-16.0); Immature Granulocytes % 1.1 %; Immature Granulocytes Absolute 0.21 #; Lymphocytes # 0.7 10*3/uL (1.4-4.0); Lymphocytes % 3.7 % (21.3-54.2); Mean Corpuscular HGB Conc 32.9 GM/DL (32-36); Mean Corpuscular Volume 92.3 FL (87-102); Mean Platelet Volume 10.7 FL (9.6-12.0); Neutrophils % 89.1 % (38.7-73.9); Platelet Count 113 T/CUMM (130-400); Red Blood Count 3.75 MC/CUMM (3.8-5.5); White Blood Count 19.1 T/CUMM (4-12)
[2019-06-24 06:16] LABS: Band Neutrophils 11 % (0-10); Lymphocytes 5 % (20-55); Segmented Neutrophils 78 % (50-85); Total Cells Counted 100
[2019-06-24 06:17] LABS: Hypochromasia 1+; Microcytosis Slight
[2019-06-24] MEDS: ENOXAPARIN 40 MG/0.4 ML SYRINGE SUBCUT SCH (08:52)
[2019-06-24] MEDS ORDERED: SODIUM CHLORIDE 0.9% 1,000 ML IV SCH (15:00)
[2019-06-24] MEDS: POTASSIUM CHLORIDE RIDER 10 MEQ in PREMIX 1 EACH IV PRN ×2 (17:40→18:49)
[2019-06-25] MEDS: LACTULOSE 20 GM/30 ML UDCUP PO SCH ×6 (01:06→22:00)
[2019-06-25] MEDS: MEROPENEM 500 MG in SODIUM CHLORIDE 0.9% 100 ML IV SCH ×5 (01:34→18:08)
[2019-06-25 04:49] LABS: Basophils % 0.1 % (0.0-0.8); Eosinophils # 0.2 10*3/uL (0.0-0.87); Eosinophils % 1.1 % (0.00-10.9); Hematocrit 32.9 VOL% (35.7-47.0); Hemoglobin 10.6 GM/DL (12.0-16.0); Immature Granulocytes % 0.8 %; Immature Granulocytes Absolute 0.13 #; Lymphocytes # 1.1 10*3/uL (1.4-4.0); Lymphocytes % 6.6 % (21.3-54.2); Mean Corpuscular HGB Conc 32.2 GM/DL (32-36); Mean Corpuscular Volume 93.2 FL (87-102); Mean Platelet Volume 10.8 FL (9.6-12.0); Monocytes % 6.9 % (1.7-12.7); Neutrophils % 84.5 % (38.7-73.9); Platelet Count 106 T/CUMM (130-400); Red Blood Count 3.53 MC/CUMM (3.8-5.5); Red Cell Distribution Width 14.2 % (9.3-17.3); White Blood Count 16.1 T/CUMM (4-12)
[2019-06-25 05:12] LABS: Calcium 7.4 MG/DL (8.5-10.1); Osmolality,Calculated 280.1 MOS/KG (273-304)
[2019-06-25] MEDS: DOCUSATE SODIUM 100 MG CAPSULE PO SCH ×2 (08:40→21:15)
[2019-06-25] MEDS: POTASSIUM CHLORIDE 20 MEQ TABLET PO PRN ×3 (08:52→15:25)
[2019-06-25] MEDS: POTASSIUM CHLORIDE 10 MEQ TABLET PO SCH ×2 (08:52→21:14)
[2019-06-25] MEDS: ENOXAPARIN 40 MG/0.4 ML SYRINGE SUBCUT SCH (08:52)
[2019-06-26] MEDS: MEROPENEM 500 MG in SODIUM CHLORIDE 0.9% 100 ML IV SCH ×4 (00:40→18:11)
[2019-06-26] MEDS: LACTULOSE 20 GM/30 ML UDCUP PO SCH ×6 (04:46→22:27)
[2019-06-26 04:52] LABS: Basophils % 0.3 % (0.0-0.8); Eosinophils # 0.3 10*3/uL (0.0-0.87); Eosinophils % 2.7 % (0.00-10.9); Hematocrit 34.4 VOL% (35.7-47.0); Hemoglobin 11.3 GM/DL (12.0-16.0); Immature Granulocytes % 1.5 %; Immature Granulocytes Absolute 0.16 #; Lymphocytes # 1.1 10*3/uL (1.4-4.0); Lymphocytes % 10.6 % (21.3-54.2); Mean Corpuscular HGB Conc 32.8 GM/DL (32-36); Mean Corpuscular Volume 92.2 FL (87-102); Mean Platelet Volume 10.9 FL (9.6-12.0); Monocytes % 5.9 % (1.7-12.7); Platelet Count 116 T/CUMM (130-400); Red Blood Count 3.73 MC/CUMM (3.8-5.5); White Blood Count 10.5 T/CUMM (4-12)
[2019-06-26 05:44] LABS: Osmolality,Calculated 279.1 MOS/KG (273-304); Thyroid Stimulating Hormone 6.68 uIU/ml (0.358-3.74)
[2019-06-26] MEDS: ENOXAPARIN 40 MG/0.4 ML SYRINGE SUBCUT SCH (09:41)
[2019-06-26] MEDS: DOCUSATE SODIUM 100 MG CAPSULE PO SCH ×2 (09:42→22:26)
[2019-06-26] MEDS: POTASSIUM CHLORIDE 20 MEQ TABLET PO PRN (09:53)
[2019-06-26] MEDS: POTASSIUM CHLORIDE 10 MEQ TABLET PO SCH ×2 (09:53→22:26)
[2019-06-27] MEDS: MEROPENEM 500 MG in SODIUM CHLORIDE 0.9% 100 ML IV SCH ×3 (00:44→13:28)
[2019-06-27] MEDS: LACTULOSE 20 GM/30 ML UDCUP PO SCH ×6 (03:17→21:25)
[2019-06-27] MEDS: LEVOTHYROXINE 75 MCG TABLET PO SCH (06:43)
[2019-06-27] MEDS: DOCUSATE SODIUM 100 MG CAPSULE PO SCH ×2 (09:22→21:25)
[2019-06-27] MEDS: POTASSIUM CHLORIDE 10 MEQ TABLET PO SCH ×2 (09:22→21:24)
[2019-06-27] MEDS: ENOXAPARIN 40 MG/0.4 ML SYRINGE SUBCUT SCH (09:22)
[2019-06-27] MEDS: metroNIDAZOLE 500 MG TABLET PO SCH ×2 (13:29→21:24)
[2019-06-27] MEDS: CIPROFLOXACIN 250 MG TABLET PO SCH (21:24)
[2019-06-28] MEDS: LACTULOSE 20 GM/30 ML UDCUP PO SCH ×6 (01:36→23:01)
[2019-06-28] MEDS: LEVOTHYROXINE 75 MCG TABLET PO SCH (05:36)
[2019-06-28] MEDS: metroNIDAZOLE 500 MG TABLET PO SCH ×3 (05:36→23:00)
[2019-06-28 07:08] LABS: Basophils # 0.1 10*3/uL (0.0-0.2); Basophils % 0.6 % (0.0-0.8); Eosinophils # 0.3 10*3/uL (0.0-0.87); Eosinophils % 3.2 % (0.00-10.9); Hemoglobin 11.9 GM/DL (12.0-16.0); Immature Granulocytes % 4.9 %; Immature Granulocytes Absolute 0.39 #; Lymphocytes # 1.5 10*3/uL (1.4-4.0); Lymphocytes % 18.5 % (21.3-54.2); Mean Corpuscular Volume 89.1 FL (87-102); Mean Platelet Volume 10.2 FL (9.6-12.0); Monocytes % 6.8 % (1.7-12.7); Platelet Count 144 T/CUMM (130-400); Red Blood Count 3.93 MC/CUMM (3.8-5.5); Red Cell Distribution Width 13.7 % (9.3-17.3); White Blood Count 7.9 T/CUMM (4-12)
[2019-06-28 07:31] LABS: Calcium 8.2 MG/DL (8.5-10.1); Osmolality,Calculated 276.4 MOS/KG (273-304)
[2019-06-28 07:40] LABS: Band Neutrophils 6 % (0-10); Eosinophils 3 % (0-10); Lymphocytes 11 % (20-55); Platelet Estimate Adequate; Segmented Neutrophils 75 % (50-85); Total Cells Counted 100
[2019-06-28 07:41] LABS: Anisocytosis 1+
[2019-06-28] MEDS: POTASSIUM CHLORIDE 10 MEQ TABLET PO SCH ×2 (09:05→23:00)
[2019-06-28] MEDS: DOCUSATE SODIUM 100 MG CAPSULE PO SCH ×2 (09:06→23:01)
[2019-06-28] MEDS: CIPROFLOXACIN 250 MG TABLET PO SCH ×2 (09:06→23:01)
[2019-06-28] MEDS: ENOXAPARIN 40 MG/0.4 ML SYRINGE SUBCUT SCH (09:06)
[2019-06-29] MEDS: LACTULOSE 20 GM/30 ML UDCUP PO SCH ×4 (01:36→14:40)
[2019-06-29 05:08] LABS: Basophils # 0.1 10*3/uL (0.0-0.2); Basophils % 0.6 % (0.0-0.8); Eosinophils # 0.3 10*3/uL (0.0-0.87); Eosinophils % 2.8 % (0.00-10.9); Hematocrit 35.8 VOL% (35.7-47.0); Hemoglobin 11.9 GM/DL (12.0-16.0); Immature Granulocytes % 6.2 %; Immature Granulocytes Absolute 0.58 #; Lymphocytes # 1.6 10*3/uL (1.4-4.0); Lymphocytes % 17.1 % (21.3-54.2); Mean Corpuscular HGB Conc 33.2 GM/DL (32-36); Mean Corpuscular Volume 90.9 FL (87-102); Monocytes % 6.9 % (1.7-12.7); Neutrophils % 66.4 % (38.7-73.9); Platelet Count 159 T/CUMM (130-400); Red Blood Count 3.94 MC/CUMM (3.8-5.5); Red Cell Distribution Width 13.6 % (9.3-17.3); White Blood Count 9.4 T/CUMM (4-12)
[2019-06-29 05:35] LABS: Band Neutrophils 1 % (0-10); Eosinophils 4 % (0-10); Hypochromasia 1+; Lymphocytes 19 % (20-55); Nucleated Red Blood Cells 1 (0-5); Platelet Estimate Adequate; Segmented Neutrophils 69 % (50-85); Total Cells Counted 100
[2019-06-29 05:37] LABS: Calcium 8.2 MG/DL (8.5-10.1); Osmolality,Calculated 278.4 MOS/KG (273-304)
[2019-06-29] MEDS: LEVOTHYROXINE 75 MCG TABLET PO SCH (06:43)
[2019-06-29] MEDS: metroNIDAZOLE 500 MG TABLET PO SCH ×2 (06:43→14:10)
[2019-06-29] MEDS: CIPROFLOXACIN 250 MG TABLET PO SCH (09:42)
[2019-06-29] MEDS: ENOXAPARIN 40 MG/0.4 ML SYRINGE SUBCUT SCH (09:43)
[2019-06-29] MEDS: POTASSIUM CHLORIDE 10 MEQ TABLET PO SCH (09:43)
[2019-06-29] MEDS: DOCUSATE SODIUM 100 MG CAPSULE PO SCH (09:57)
[2019-06-29 12:11] VITALS: BP 111/61
[2019-06-29 23:51] LABS: CDT Result Positive (Negative); CDT Specimen Source STOOL
== END 2019-06-29 14:47 | DRG 871 ==
LOC: EDUNIT# → EDBD → N.ED 20:17 → N.EDINP 21:55 → SUATTDRO 21:55 → N.TELEN 06-24 00:15
PROVIDERS: ADMIT Internal Medicine; ATTEND Internal Medicine

== ENCOUNTER 2019-07-15 15:22 | Inpatient (IN) ==
[2019-07-15] MEDS ORDERED: ACETAMINOPHEN 500 MG TABLET ONE (15:45)
[2019-07-15] MEDS ORDERED: ONDANSETRON 4 MG/2 ML VIAL ONE (15:45)
[2019-07-15] MEDS ORDERED: ONDANSETRON 4 MG/2 ML VIAL IV STA (15:45)
[2019-07-15] MEDS ORDERED: ACETAMINOPHEN 650 MG SUPP RECTAL STA (16:10)
[2019-07-15] MEDS ORDERED: ACETAMINOPHEN 650 MG SUPP RECTAL ONE (16:15)
[2019-07-15 16:48] LABS: Hematocrit 40.2 VOL% (35.7-47.0); Hemoglobin 13.3 GM/DL (12.0-16.0); Immature Granulocytes Absolute 0.03 #; Lymphocytes # 0.5 10*3/uL (1.4-4.0); Lymphocytes % 14.8 % (21.3-54.2); Mean Corpuscular HGB Conc 33.1 GM/DL (32-36); Mean Corpuscular Volume 90.5 FL (87-102); Mean Platelet Volume 11.1 FL (9.6-12.0); Monocytes % 7.7 % (1.7-12.7); Neutrophils % 76.5 % (38.7-73.9); Platelet Count 98 T/CUMM (130-400); Red Blood Count 4.44 MC/CUMM (3.8-5.5); Red Cell Distribution Width 13.9 % (9.3-17.3); White Blood Count 3.1 T/CUMM (4-12)
[2019-07-15] MEDS ORDERED: METOCLOPRAMIDE 10 MG/2 ML VIAL IV STA (16:57)
[2019-07-15] MEDS ORDERED: ALBUTEROL/IPRATROPIUM 3 ML NEB RESP TX STA (16:57)
[2019-07-15] MEDS ORDERED: PANTOPRAZOLE 40 MG VIAL IV STA (16:57)
[2019-07-15] MEDS ORDERED: AZITHROMYCIN INJ 500 MG in SODIUM CHLORIDE 0.9% 250 ML IV STA (16:57)
[2019-07-15 17:00] LABS: Albumin 3.3 G/DL (3.4-5.0); Bilirubin,Total 0.4 MG/DL (0.2-1.0); Calcium 8.5 MG/DL (8.5-10.1)
[2019-07-15 17:03] LABS: Apearance,Urine Slightly Hazy (Clear); Bacteria,Urine Occasional /HPF (Few); Bilirubin,Urine Negative (Negative); Blood, Urine Small mg/dL (Negative); Glucose,Urine (UA) Negative (Negative); Hyaline Casts,Urine 7 /LPF (0-3); Ketones,Urine Negative (Negative); Mucus,Urine Occasional /LPF (Occasional); Nitrite,Urine Negative (Negative); Protein,Urine Negative; RBC,Urine 2 /HPF (0-4); Squamous Epithelial Cell,Urine Occasional /HPF (0-10); Urine Color Yellow (Yellow); Urine Specific Gravity 1.014 (1.001-1.035); Urine Urobilinogen < 2.0 EU/DL (0.2-1.0); WBC,Urine 2 /HPF (0-6)
[2019-07-15] MEDS ORDERED: SODIUM CHLORIDE 0.9% 500 ML IV STA (17:19)
[2019-07-15 17:21] LABS: INR 0.9; PT Patient Result 9.8 SECS (9.6-12.2); Partial Thromboplastin Time 26.6 SECS (20.8-36.0)
[2019-07-15 17:32] LABS: Amylase 44 U/L (25-115); Troponin I < 0.015 NG/ML (0.00-0.045)
[2019-07-15] MEDS ORDERED: VANCOMYCIN INJ 1,000 MG in SODIUM CHLORIDE 0.9% 250 ML IV STA (17:35)
[2019-07-15] MEDS ORDERED: DEXTROSE 10% 250 ML BAG IV PRN (18:41)
[2019-07-15] MEDS ORDERED: GLUCAGON 1 MG VIAL IM PRN (18:41)
[2019-07-15] MEDS ORDERED: DICYCLOMINE 20 MG TABLET PO PRN (18:57)
[2019-07-15] MEDS ORDERED: ENOXAPARIN 40 MG/0.4 ML SYRINGE SUBCUT SCH (21:00)
[2019-07-15] MEDS: MAGNESIUM OXIDE 400 MG TABLET PO SCH (22:24)
[2019-07-15] MEDS: POTASSIUM CHLORIDE 20 MEQ PACK PO SCH (22:25)
[2019-07-15] MEDS: ACETAMINOPHEN 325 MG TABLET PO PRN (23:50)
[2019-07-16] MEDS ORDERED: INFLUENZA VIRUS VACCINE 0.5 ML SYRINGE IM ONE (00:15)
[2019-07-16] MEDS: SIMVASTATIN 10 MG TABLET PO SCH ×2 (00:19→21:33)
[2019-07-16] MEDS: LACTULOSE 20 GM/30 ML UDCUP PO SCH ×2 (00:19→09:40)
[2019-07-16] MEDS: POTASSIUM CHLORIDE 8 MEQ CAPSULE PO SCH ×2 (00:19→09:40)
[2019-07-16] MEDS: HYDROXYCHLOROQUINE 200 MG TABLET PO SCH ×3 (00:19→21:33)
[2019-07-16] MEDS: ZINC OXIDE PASTE 113 GM TUBE TOP PRN (06:18)
[2019-07-16] MEDS: LEVOTHYROXINE 75 MCG TABLET PO SCH (06:18)
[2019-07-16] MEDS: ACETAMINOPHEN 325 MG TABLET PO PRN ×4 (06:18→21:33)
[2019-07-16] MEDS: PANTOPRAZOLE 40 MG TABLET PO SCH (09:40)
[2019-07-16] MEDS: MAGNESIUM OXIDE 400 MG TABLET PO SCH (09:40)
[2019-07-16] MEDS: SOLIFENACIN 5 MG TABLET PO SCH (09:40)
[2019-07-16] MEDS: metOLazone 2.5 MG TABLET PO SCH (09:40)
[2019-07-16] MEDS: LINACLOTIDE 145 MCG CAPSULE PO SCH (09:40)
[2019-07-16] MEDS: ZINC SULFATE 220 MG CAPSULE PO SCH (09:40)
[2019-07-16] MEDS: POTASSIUM CHLORIDE 20 MEQ PACK PO SCH ×3 (10:00→21:33)
[2019-07-16 10:20] LABS: Eosinophils % 0.4 % (0.00-10.9); Hematocrit 37.9 VOL% (35.7-47.0); Hemoglobin 12.6 GM/DL (12.0-16.0); Immature Granulocytes % 1.1 %; Immature Granulocytes Absolute 0.03 #; Lymphocytes # 0.6 10*3/uL (1.4-4.0); Lymphocytes % 21.9 % (21.3-54.2); Mean Corpuscular HGB Conc 33.2 GM/DL (32-36); Mean Corpuscular Volume 89.2 FL (87-102); Mean Platelet Volume 9.7 FL (9.6-12.0); Monocytes % 7.5 % (1.7-12.7); Neutrophils % 69.1 % (38.7-73.9); Platelet Count 84 T/CUMM (130-400); Red Blood Count 4.25 MC/CUMM (3.8-5.5); Red Cell Distribution Width 13.8 % (9.3-17.3); White Blood Count 2.7 T/CUMM (4-12)
[2019-07-16] MEDS ORDERED: SODIUM CHLORIDE 0.9% 1,000 ML IV SCH (10:30)
[2019-07-16 10:37] LABS: Ferritin 882.1 ng/ml (8-252)
[2019-07-16 10:41] LABS: Albumin 2.9 G/DL (3.4-5.0); Bilirubin,Total 0.5 MG/DL (0.2-1.0); Calcium 8.1 MG/DL (8.5-10.1); Osmolality,Calculated 275.5 MOS/KG (273-304); Total Protein 5.8 G/DL (6.4-8.3)
[2019-07-16 10:42] LABS: Platelet Estimate Decreased
[2019-07-16] MEDS ORDERED: MAGNESIUM SULF RIDER 4 GM in PREMIX 1 EACH IV PRN (10:48)
[2019-07-16] MEDS ORDERED: MAGNESIUM SULF RIDER 2 GM in PREMIX 1 EACH IV PRN (10:48)
[2019-07-16] MEDS ORDERED: AZITHROMYCIN INJ 250 MG in SODIUM CHLORIDE 0.9% 150 ML IV SCH (16:00)
[2019-07-17] MEDS: ZINC OXIDE PASTE 113 GM TUBE TOP PRN (04:40)
[2019-07-17] MEDS: ACETAMINOPHEN 325 MG TABLET PO PRN ×2 (04:40→09:18)
[2019-07-17 05:39] LABS: Hematocrit 38.7 VOL% (35.7-47.0); Hemoglobin 12.7 GM/DL (12.0-16.0); Immature Granulocytes Absolute 0.03 #; Lymphocytes # 0.6 10*3/uL (1.4-4.0); Lymphocytes % 20.7 % (21.3-54.2); Mean Corpuscular HGB Conc 32.8 GM/DL (32-36); Mean Corpuscular Volume 91.7 FL (87-102); Mean Platelet Volume 10.4 FL (9.6-12.0); Monocytes % 6.1 % (1.7-12.7); Neutrophils % 72.2 % (38.7-73.9); Platelet Count 89 T/CUMM (130-400); Red Blood Count 4.22 MC/CUMM (3.8-5.5); Red Cell Distribution Width 14.1 % (9.3-17.3)
[2019-07-17 05:58] LABS: Albumin 2.9 G/DL (3.4-5.0); Bilirubin,Total 0.4 MG/DL (0.2-1.0); Calcium 8.5 MG/DL (8.5-10.1); Total Protein 6.7 G/DL (6.4-8.3)
[2019-07-17] MEDS: POTASSIUM CHLORIDE 20 MEQ PACK PO SCH ×2 (09:18→20:09)
[2019-07-17] MEDS: metOLazone 2.5 MG TABLET PO SCH (09:18)
[2019-07-17] MEDS: LINACLOTIDE 145 MCG CAPSULE PO SCH (09:18)
[2019-07-17] MEDS: HYDROXYCHLOROQUINE 200 MG TABLET PO SCH ×2 (09:19→20:09)
[2019-07-17] MEDS: LEVOTHYROXINE 75 MCG TABLET PO SCH (09:19)
[2019-07-17] MEDS: PANTOPRAZOLE 40 MG TABLET PO SCH (09:20)
[2019-07-17] MEDS: POTASSIUM CHLORIDE 20 MEQ TABLET PO PRN ×2 (09:39→16:43)
[2019-07-17] MEDS: SOLIFENACIN 5 MG TABLET PO SCH (10:37)
[2019-07-17] MEDS: AZITHROMYCIN 250 MG TABLET PO SCH (16:46)
[2019-07-17] MEDS: ONDANSETRON 4 MG/2 ML VIAL IV PRN (22:00)
[2019-07-18 05:23] LABS: Basophils % 0.3 % (0.0-0.8); Hematocrit 39.2 VOL% (35.7-47.0); Immature Granulocytes % 1.1 %; Immature Granulocytes Absolute 0.04 #; Lymphocytes # 0.6 10*3/uL (1.4-4.0); Lymphocytes % 16.9 % (21.3-54.2); Mean Corpuscular HGB Conc 33.2 GM/DL (32-36); Mean Corpuscular Volume 90.3 FL (87-102); Mean Platelet Volume 11.1 FL (9.6-12.0); Monocytes % 6.5 % (1.7-12.7); Neutrophils % 75.2 % (38.7-73.9); Platelet Count 100 T/CUMM (130-400); Red Blood Count 4.34 MC/CUMM (3.8-5.5); Red Cell Distribution Width 14.1 % (9.3-17.3); White Blood Count 3.7 T/CUMM (4-12)
[2019-07-18 05:42] LABS: Calcium 8.5 MG/DL (8.5-10.1); Osmolality,Calculated 281.4 MOS/KG (273-304)
[2019-07-18] MEDS: ZINC OXIDE PASTE 113 GM TUBE TOP PRN ×2 (06:09→20:23)
[2019-07-18] MEDS: LEVOTHYROXINE 75 MCG TABLET PO SCH (06:09)
[2019-07-18] MEDS: POTASSIUM CHLORIDE 20 MEQ TABLET PO PRN ×3 (06:09→17:55)
[2019-07-18 06:52] LABS: Anisocytosis 1+; Band Neutrophils 4 % (0-10); Lymphocytes 13 % (20-55); Platelet Estimate Adequate; Segmented Neutrophils 75 % (50-85); Total Cells Counted 100
[2019-07-18] MEDS: PANTOPRAZOLE 40 MG TABLET PO SCH (09:57)
[2019-07-18] MEDS: metOLazone 2.5 MG TABLET PO SCH (09:57)
[2019-07-18] MEDS: POTASSIUM CHLORIDE 20 MEQ PACK PO SCH ×2 (09:58→20:23)
[2019-07-18] MEDS: HYDROXYCHLOROQUINE 200 MG TABLET PO SCH ×2 (10:07→20:23)
[2019-07-18] MEDS: ZINC SULFATE 220 MG CAPSULE PO SCH (10:09)
[2019-07-18] MEDS: ACETAMINOPHEN 325 MG TABLET PO PRN ×2 (10:09→15:55)
[2019-07-18] MEDS: LINACLOTIDE 145 MCG CAPSULE PO SCH (10:11)
[2019-07-18] MEDS: AZITHROMYCIN 250 MG TABLET PO SCH (15:55)
[2019-07-18] MEDS ORDERED: POTASSIUM CHLORIDE 20 MEQ TABLET PO ONE (21:00)
[2019-07-19] MEDS: ACETAMINOPHEN 325 MG TABLET PO PRN ×2 (00:15→11:46)
[2019-07-19] MEDS: LEVOTHYROXINE 75 MCG TABLET PO SCH (05:00)
[2019-07-19] MEDS: POTASSIUM CHLORIDE 20 MEQ PACK PO SCH ×2 (08:13→21:51)
[2019-07-19] MEDS: LINACLOTIDE 145 MCG CAPSULE PO SCH (08:13)
[2019-07-19] MEDS: HYDROXYCHLOROQUINE 200 MG TABLET PO SCH (08:13)
[2019-07-19] MEDS: PANTOPRAZOLE 40 MG TABLET PO SCH (08:14)
[2019-07-19] MEDS: POTASSIUM CHLORIDE 20 MEQ TABLET PO SCH ×2 (11:46→15:41)
[2019-07-19 11:48] LABS: Apearance,Urine CLEAR (Clear); Bilirubin,Urine Negative (Negative); Blood, Urine Negative (Negative); Glucose,Urine (UA) Negative (Negative); Ketones,Urine Negative (Negative); Nitrite,Urine Negative (Negative); Protein,Urine Negative; RBC,Urine 1 /HPF (0-4); Squamous Epithelial Cell,Urine Occasional /HPF (0-10); Urine Color Straw (Yellow); Urine Specific Gravity 1.008 (1.001-1.035); Urine Urobilinogen < 2.0 EU/DL (0.2-1.0); WBC,Urine <1 /HPF (0-6)
[2019-07-19] MEDS: AZITHROMYCIN 250 MG TABLET PO SCH (15:41)
[2019-07-19] MEDS: DESITIN 4OZ/NYSTATIN 15 GRAM MIXTURE PASTE TOP SCH (21:51)
[2019-07-20] MEDS: LEVOTHYROXINE 75 MCG TABLET PO SCH (06:25)
[2019-07-20 06:35] LABS: Calcium 8.6 MG/DL (8.5-10.1); Osmolality,Calculated 279.5 MOS/KG (273-304)
[2019-07-20] MEDS: ALBUTEROL/IPRATROPIUM 3 ML NEB RESP TX SCH ×2 (08:49→13:43)
[2019-07-20] MEDS: DESITIN 4OZ/NYSTATIN 15 GRAM MIXTURE PASTE TOP SCH ×2 (09:03→22:45)
[2019-07-20] MEDS: POTASSIUM CHLORIDE 20 MEQ TABLET PO SCH ×2 (09:03→15:23)
[2019-07-20] MEDS: PANTOPRAZOLE 40 MG TABLET PO SCH (09:03)
[2019-07-20] MEDS: POTASSIUM CHLORIDE 20 MEQ PACK PO SCH ×2 (09:03→20:16)
[2019-07-20] MEDS: LINACLOTIDE 145 MCG CAPSULE PO SCH (09:03)
[2019-07-20 10:31] LABS: Eosinophils % 0.7 % (0.00-10.9); Hematocrit 38.7 VOL% (35.7-47.0); Hemoglobin 13.3 GM/DL (12.0-16.0); Immature Granulocytes % 1.1 %; Immature Granulocytes Absolute 0.05 #; Lymphocytes # 0.5 10*3/uL (1.4-4.0); Lymphocytes % 11.4 % (21.3-54.2); Mean Corpuscular HGB Conc 34.4 GM/DL (32-36); Mean Corpuscular Volume 86.8 FL (87-102); Mean Platelet Volume 10.5 FL (9.6-12.0); Monocytes % 7.3 % (1.7-12.7); Neutrophils % 79.5 % (38.7-73.9); Platelet Count 129 T/CUMM (130-400); Red Blood Count 4.46 MC/CUMM (3.8-5.5); Red Cell Distribution Width 13.8 % (9.3-17.3); White Blood Count 4.4 T/CUMM (4-12)
[2019-07-20 10:55] LABS: Band Neutrophils 1 % (0-10); Hypochromasia 1+; Lymphocytes 6 % (20-55); Ovalocytes Slight; Segmented Neutrophils 83 % (50-85); Total Cells Counted 100
[2019-07-20] MEDS: PIPERACILLIN/TAZOBACTAM 3,375 MG in SODIUM CHLORIDE 0.9% 100 ML IV SCH ×2 (11:42→17:37)
[2019-07-20] MEDS: VANCOMYCIN INJ 1,000 MG in SODIUM CHLORIDE 0.9% 250 ML IV SCH (15:23)
[2019-07-20] MEDS: ZINC OXIDE PASTE 113 GM TUBE TOP PRN (20:16)
[2019-07-21] MEDS: PIPERACILLIN/TAZOBACTAM 3,375 MG in SODIUM CHLORIDE 0.9% 100 ML IV SCH ×3 (01:13→17:14)
[2019-07-21 03:50] LABS: Basophils % 0.5 % (0.0-0.8); Eosinophils # 0.1 10*3/uL (0.0-0.87); Eosinophils % 1.3 % (0.00-10.9); Hematocrit 38.3 VOL% (35.7-47.0); Hemoglobin 12.5 GM/DL (12.0-16.0); Immature Granulocytes % 1.3 %; Immature Granulocytes Absolute 0.05 #; Lymphocytes # 0.9 10*3/uL (1.4-4.0); Lymphocytes % 21.3 % (21.3-54.2); Mean Corpuscular HGB Conc 32.6 GM/DL (32-36); Mean Corpuscular Volume 90.8 FL (87-102); Mean Platelet Volume 10.8 FL (9.6-12.0); Monocytes % 10.3 % (1.7-12.7); Neutrophils % 65.3 % (38.7-73.9); Platelet Count 162 T/CUMM (130-400); Red Blood Count 4.22 MC/CUMM (3.8-5.5); Red Cell Distribution Width 14.3 % (9.3-17.3)
[2019-07-21 04:23] LABS: Calcium 8.9 MG/DL (8.5-10.1); Osmolality,Calculated 285.1 MOS/KG (273-304)
[2019-07-21 04:37] LABS: Band Neutrophils 1 % (0-10); Eosinophils 1 % (0-10); Hypochromasia 1+; Lymphocytes 21 % (20-55); Platelet Estimate Adequate; Segmented Neutrophils 68 % (50-85); Total Cells Counted 100
[2019-07-21] MEDS: LEVOTHYROXINE 75 MCG TABLET PO SCH (05:36)
[2019-07-21] MEDS ORDERED: POTASSIUM CHLORIDE 20 MEQ TABLET PO PRN (08:03)
[2019-07-21] MEDS: ALBUTEROL/IPRATROPIUM 3 ML NEB RESP TX SCH ×3 (08:51→08:58)
[2019-07-21] MEDS: LINACLOTIDE 145 MCG CAPSULE PO SCH (08:55)
[2019-07-21] MEDS: predniSONE 20 MG TABLET PO SCH (08:58)
[2019-07-21] MEDS: POTASSIUM CHLORIDE 20 MEQ PACK PO SCH ×3 (08:58→20:44)
[2019-07-21] MEDS: PANTOPRAZOLE 40 MG TABLET PO SCH (08:59)
[2019-07-21] MEDS: VANCOMYCIN INJ 1,000 MG in SODIUM CHLORIDE 0.9% 250 ML IV SCH (08:59)
[2019-07-21] MEDS: DESITIN 4OZ/NYSTATIN 15 GRAM MIXTURE PASTE TOP SCH ×2 (09:00→20:43)
[2019-07-21] MEDS: ONDANSETRON 4 MG/2 ML VIAL IV PRN (15:45)
[2019-07-22] MEDS: VANCOMYCIN INJ 1,000 MG in SODIUM CHLORIDE 0.9% 250 ML IV SCH ×2 (00:05→23:14)
[2019-07-22] MEDS: PIPERACILLIN/TAZOBACTAM 3,375 MG in SODIUM CHLORIDE 0.9% 100 ML IV SCH ×3 (01:39→19:07)
[2019-07-22 05:05] LABS: Basophils % 0.2 % (0.0-0.8); Hematocrit 35.6 VOL% (35.7-47.0); Hemoglobin 11.9 GM/DL (12.0-16.0); Immature Granulocytes % 2.6 %; Immature Granulocytes Absolute 0.12 #; Lymphocytes # 0.6 10*3/uL (1.4-4.0); Lymphocytes % 13.3 % (21.3-54.2); Mean Corpuscular HGB Conc 33.4 GM/DL (32-36); Mean Corpuscular Volume 90.4 FL (87-102); Mean Platelet Volume 10.9 FL (9.6-12.0); Monocytes % 11.6 % (1.7-12.7); Neutrophils % 72.3 % (38.7-73.9); Platelet Count 175 T/CUMM (130-400); Red Blood Count 3.94 MC/CUMM (3.8-5.5); Red Cell Distribution Width 14.3 % (9.3-17.3); White Blood Count 4.6 T/CUMM (4-12)
[2019-07-22 05:24] LABS: Hypochromasia 1+; Ovalocytes Slight; Platelet Estimate Adequate
[2019-07-22 05:31] LABS: Albumin 2.7 G/DL (3.4-5.0); Bilirubin,Total 0.4 MG/DL (0.2-1.0); Calcium 8.9 MG/DL (8.5-10.1); Osmolality,Calculated 292.6 MOS/KG (273-304); Total Protein 6.7 G/DL (6.4-8.3)
[2019-07-22] MEDS: LEVOTHYROXINE 75 MCG TABLET PO SCH (06:32)
[2019-07-22] MEDS: POTASSIUM CHLORIDE 20 MEQ PACK PO SCH ×3 (08:45→23:13)
[2019-07-22] MEDS: predniSONE 20 MG TABLET PO SCH (08:46)
[2019-07-22] MEDS: PANTOPRAZOLE 40 MG TABLET PO SCH (08:46)
[2019-07-22] MEDS: LINACLOTIDE 145 MCG CAPSULE PO SCH (08:48)
[2019-07-22] MEDS: DESITIN 4OZ/NYSTATIN 15 GRAM MIXTURE PASTE TOP SCH ×2 (11:23→23:16)
[2019-07-23] MEDS: PIPERACILLIN/TAZOBACTAM 3,375 MG in SODIUM CHLORIDE 0.9% 100 ML IV SCH (02:33)
[2019-07-23] MEDS: LEVOTHYROXINE 75 MCG TABLET PO SCH (06:56)
[2019-07-23] MEDS: LINACLOTIDE 145 MCG CAPSULE PO SCH (11:34)
[2019-07-23] MEDS: predniSONE 20 MG TABLET PO SCH (11:35)
[2019-07-23] MEDS: PANTOPRAZOLE 40 MG TABLET PO SCH (11:35)
[2019-07-23] MEDS: DESITIN 4OZ/NYSTATIN 15 GRAM MIXTURE PASTE TOP SCH ×2 (11:35→20:21)
[2019-07-23] MEDS: POTASSIUM CHLORIDE 20 MEQ PACK PO SCH ×3 (11:35→20:21)
[2019-07-23] MEDS: VANCOMYCIN INJ 1,000 MG in SODIUM CHLORIDE 0.9% 250 ML IV SCH (16:25)
[2019-07-23 20:07] LABS: Basophils % 0.2 % (0.0-0.8); Hematocrit 36.7 VOL% (35.7-47.0); Hemoglobin 12.3 GM/DL (12.0-16.0); Immature Granulocytes % 3.9 %; Immature Granulocytes Absolute 0.25 #; Lymphocytes # 0.5 10*3/uL (1.4-4.0); Lymphocytes % 7.4 % (21.3-54.2); Mean Corpuscular HGB Conc 33.5 GM/DL (32-36); Mean Corpuscular Volume 90.6 FL (87-102); Mean Platelet Volume 10.5 FL (9.6-12.0); Monocytes % 2.3 % (1.7-12.7); Neutrophils % 86.2 % (38.7-73.9); Platelet Count 236 T/CUMM (130-400); Red Blood Count 4.05 MC/CUMM (3.8-5.5); Red Cell Distribution Width 13.9 % (9.3-17.3); White Blood Count 6.5 T/CUMM (4-12)
[2019-07-23 20:19] LABS: Bilirubin,Total 0.4 MG/DL (0.2-1.0); Calcium 9.1 MG/DL (8.5-10.1); Osmolality,Calculated 286.1 MOS/KG (273-304); Total Protein 6.6 G/DL (6.4-8.3)
[2019-07-24] MEDS: LEVOTHYROXINE 75 MCG TABLET PO SCH (06:10)
[2019-07-24] MEDS: POTASSIUM CHLORIDE 20 MEQ PACK PO SCH ×3 (08:15→19:53)
[2019-07-24] MEDS: LINACLOTIDE 145 MCG CAPSULE PO SCH (08:15)
[2019-07-24] MEDS: PANTOPRAZOLE 40 MG TABLET PO SCH (08:15)
[2019-07-24] MEDS: DESITIN 4OZ/NYSTATIN 15 GRAM MIXTURE PASTE TOP SCH ×2 (08:15→19:53)
[2019-07-24] MEDS: predniSONE 20 MG TABLET PO SCH (10:42)
[2019-07-24] MEDS ORDERED: VANCOMYCIN INJ 1,000 MG in SODIUM CHLORIDE 0.9% 250 ML IV PRN (12:46)
[2019-07-24 22:24] VITALS: BP 128/52
== END 2019-07-24 22:05 | DRG 871 ==
LOC: EDBD → EDUNIT# → N.ED 15:22 → N.EDINP 18:41 → SUATTDRO 18:41 → N.2E 23:02 → N.5E 07-20 09:33 → N.2W 07-20 17:11 → N.3E 07-22 17:48 → N.2W 07-22 19:02
PROVIDERS: ADMIT Internal Medicine; ATTEND Family Medicine

== ENCOUNTER 2019-08-30 17:06 | Inpatient (IN) ==
[2019-08-30] MEDS ORDERED: SODIUM CHLORIDE 0.9% 500 ML IV STA (17:24)
[2019-08-30 17:53] LABS: Basophils % 0.1 % (0.0-0.8); Eosinophils % 0.1 % (0.00-10.9); Hematocrit 33.7 VOL% (35.7-47.0); Hemoglobin 11.1 GM/DL (12.0-16.0); Immature Granulocytes % 1.7 %; Immature Granulocytes Absolute 0.25 #; Lymphocytes # 0.7 10*3/uL (1.4-4.0); Lymphocytes % 4.6 % (21.3-54.2); Mean Corpuscular HGB Conc 32.9 GM/DL (32-36); Mean Corpuscular Volume 88.2 FL (87-102); Mean Platelet Volume 9.3 FL (9.6-12.0); Monocytes % 6.8 % (1.7-12.7); Neutrophils % 86.7 % (38.7-73.9); Platelet Count 201 T/CUMM (130-400); Red Blood Count 3.82 MC/CUMM (3.8-5.5); Red Cell Distribution Width 15.1 % (9.3-17.3); White Blood Count 14.7 T/CUMM (4-12)
[2019-08-30] MEDS ORDERED: ACETAMINOPHEN 500 MG TABLET PO STA (17:58)
[2019-08-30 18:14] LABS: Lymphocytes 3 % (20-55); Segmented Neutrophils 93 % (50-85); Total Cells Counted 100
[2019-08-30 18:15] LABS: Microcytosis Slight; Platelet Estimate Normal
[2019-08-30 18:16] LABS: Anisocytosis 1+; Hypochromasia Slight
[2019-08-30 18:20] LABS: Albumin 1.9 G/DL (3.4-5.0); Bilirubin,Total 1.7 MG/DL (0.2-1.0); Calcium 7.9 MG/DL (8.5-10.1); Osmolality,Calculated 252.4 MOS/KG (273-304); Total Protein 5.5 G/DL (6.4-8.3)
[2019-08-30 18:49] LABS: Apearance,Urine CLEAR (Clear); Bilirubin,Urine Negative (Negative); Blood, Urine Small mg/dL (Negative); Glucose,Urine (UA) Negative (Negative); Hyaline Casts,Urine 9 /LPF (0-3); Ketones,Urine 5 mg/dL (Negative); Mucus,Urine Occasional /LPF (Occasional); Nitrite,Urine Negative (Negative); Protein,Urine Negative; RBC,Urine 5 /HPF (0-4); Urine Color Yellow (Yellow); Urine Specific Gravity 1.016 (1.001-1.035); WBC,Urine 10 /HPF (0-6)
[2019-08-30] MEDS ORDERED: cefTRIAXone 1,000 MG in SODIUM CHLORIDE 0.9% 100 ML IV STA (18:52)
[2019-08-30] MEDS ORDERED: GLUCAGON 1 MG VIAL IM PRN (20:30)
[2019-08-30] MEDS ORDERED: DEXTROSE 10% 250 ML BAG IV PRN (20:30)
[2019-08-30] MEDS ORDERED: ONDANSETRON 4 MG/2 ML VIAL IV PRN (20:30)
[2019-08-30] MEDS ORDERED: MAGNESIUM SULF RIDER 2 GM in PREMIX 1 EACH IV PRN (20:44)
[2019-08-30] MEDS: HEPARIN 5,000 UNIT/1 ML VIAL SUBCUT SCH (21:50)
[2019-08-30] MEDS: metroNIDAZOLE INJ 500 MG in PREMIX 1 EACH IV SCH (21:52)
[2019-08-30] MEDS: SODIUM CHLORIDE 0.9% 1,000 ML IV SCH (21:53)
[2019-08-30] MEDS ORDERED: CIPROFLOXACIN INJ 200 MG in PREMIX 1 EACH IV SCH (22:00)
[2019-08-30 22:26] LABS: Ferritin 1493.9 ng/ml (8-252)
[2019-08-31 04:05] LABS: Basophils % 0.2 % (0.0-0.8); Eosinophils % 0.1 % (0.00-10.9); Hematocrit 34.2 VOL% (35.7-47.0); Hemoglobin 10.9 GM/DL (12.0-16.0); Immature Granulocytes % 1.3 %; Immature Granulocytes Absolute 0.21 #; Lymphocytes # 0.3 10*3/uL (1.4-4.0); Lymphocytes % 1.9 % (21.3-54.2); Mean Corpuscular HGB Conc 31.9 GM/DL (32-36); Mean Corpuscular Volume 89.1 FL (87-102); Mean Platelet Volume 9.2 FL (9.6-12.0); Monocytes % 5.6 % (1.7-12.7); Neutrophils % 90.9 % (38.7-73.9); Platelet Count 183 T/CUMM (130-400); Red Blood Count 3.84 MC/CUMM (3.8-5.5)
[2019-08-31 04:28] LABS: Albumin 1.9 G/DL (3.4-5.0); Bilirubin,Total 0.5 MG/DL (0.2-1.0); Calcium 7.8 MG/DL (8.5-10.1); Osmolality,Calculated 256.1 MOS/KG (273-304); Total Protein 5.3 G/DL (6.4-8.3)
[2019-08-31 04:43] LABS: Band Neutrophils 12 % (0-10); Hypochromasia 1+; Lymphocytes 2 % (20-55); Segmented Neutrophils 81 % (50-85); Total Cells Counted 100
[2019-08-31 04:44] LABS: Microcytosis Slight; Platelet Estimate Adequate
[2019-08-31] MEDS: metroNIDAZOLE INJ 500 MG in PREMIX 1 EACH IV SCH ×3 (04:52→20:55)
[2019-08-31] MEDS: LEVOTHYROXINE 75 MCG TABLET PO SCH (06:18)
[2019-08-31] MEDS: PANTOPRAZOLE 40 MG TABLET PO SCH (08:54)
[2019-08-31] MEDS: HEPARIN 5,000 UNIT/1 ML VIAL SUBCUT SCH ×2 (08:54→22:16)
[2019-08-31] MEDS ORDERED: LACTOBACILLUS ACIDOPHILUS/BULGARICUS CHEW TABLET PO SCH (09:00)
[2019-08-31] MEDS: VANCOMYCIN 50 MG/ML 60 ML/BOTTLE PO SCH ×2 (11:58→17:45)
[2019-08-31] MEDS: POTASSIUM CHLORIDE RIDER 10 MEQ in PREMIX 1 EACH IV PRN ×2 (13:45→14:50)
[2019-08-31] MEDS: SODIUM CHLORIDE 0.9% 1,000 ML IV SCH (16:50)
[2019-08-31] MEDS: SIMVASTATIN 10 MG TABLET PO SCH (21:50)
[2019-09-01] MEDS: VANCOMYCIN 50 MG/ML 60 ML/BOTTLE PO SCH ×4 (00:12→17:41)
[2019-09-01] MEDS: metroNIDAZOLE INJ 500 MG in PREMIX 1 EACH IV SCH ×3 (04:52→21:54)
[2019-09-01 05:18] LABS: Basophils % 0.3 % (0.0-0.8); Eosinophils # 0.1 10*3/uL (0.0-0.87); Eosinophils % 0.6 % (0.00-10.9); Hematocrit 29.9 VOL% (35.7-47.0); Immature Granulocytes % 1.2 %; Immature Granulocytes Absolute 0.14 #; Lymphocytes # 0.5 10*3/uL (1.4-4.0); Lymphocytes % 4.5 % (21.3-54.2); Mean Corpuscular HGB Conc 33.4 GM/DL (32-36); Mean Corpuscular Volume 87.4 FL (87-102); Mean Platelet Volume 9.5 FL (9.6-12.0); Monocytes % 5.6 % (1.7-12.7); Neutrophils % 87.8 % (38.7-73.9); Platelet Count 193 T/CUMM (130-400); Red Blood Count 3.42 MC/CUMM (3.8-5.5); Red Cell Distribution Width 15.1 % (9.3-17.3); White Blood Count 11.4 T/CUMM (4-12)
[2019-09-01] MEDS: LEVOTHYROXINE 75 MCG TABLET PO SCH (05:31)
[2019-09-01 06:02] LABS: Band Neutrophils 5 % (0-10); Eosinophils 1 % (0-10); Hypochromasia Slight; Lymphocytes 5 % (20-55); Microcytosis Slight; Platelet Estimate Adequate; Segmented Neutrophils 86 % (50-85); Total Cells Counted 100
[2019-09-01] MEDS: PANTOPRAZOLE 40 MG TABLET PO SCH (08:06)
[2019-09-01] MEDS: HEPARIN 5,000 UNIT/1 ML VIAL SUBCUT SCH ×2 (08:06→21:55)
[2019-09-01] MEDS: SODIUM CHLORIDE 0.9% 1,000 ML IV SCH ×2 (11:16→12:39)
[2019-09-01 14:58] LABS: Albumin 1.8 G/DL (3.4-5.0); Bilirubin,Total 0.4 MG/DL (0.2-1.0); Calcium 7.9 MG/DL (8.5-10.1); Osmolality,Calculated 252.2 MOS/KG (273-304); Total Protein 4.6 G/DL (6.4-8.3)
[2019-09-01] MEDS: POTASSIUM CHLORIDE RIDER 10 MEQ in PREMIX 1 EACH IV PRN ×2 (17:42→19:30)
[2019-09-01] MEDS: SIMVASTATIN 10 MG TABLET PO SCH (21:56)
[2019-09-02] MEDS: POTASSIUM CHLORIDE RIDER 10 MEQ in PREMIX 1 EACH IV PRN ×3 (00:56→06:39)
[2019-09-02] MEDS: VANCOMYCIN 50 MG/ML 60 ML/BOTTLE PO SCH ×4 (01:07→17:54)
[2019-09-02] MEDS: metroNIDAZOLE INJ 500 MG in PREMIX 1 EACH IV SCH ×3 (05:26→21:18)
[2019-09-02] MEDS: LEVOTHYROXINE 75 MCG TABLET PO SCH (06:23)
[2019-09-02] MEDS: SODIUM CHLORIDE 1 GM TABLET PO SCH ×3 (10:28→21:18)
[2019-09-02] MEDS: HEPARIN 5,000 UNIT/1 ML VIAL SUBCUT SCH ×2 (10:28→21:17)
[2019-09-02] MEDS: DEXT 5% NACL 0.9% KCL 20 MEQ 20 MEQ/1,000 ML BAG IV SCH (10:28)
[2019-09-02] MEDS: PANTOPRAZOLE 40 MG TABLET PO SCH (10:28)
[2019-09-02 10:47] LABS: Calcium 7.3 MG/DL (8.5-10.1); Osmolality,Calculated 264.4 MOS/KG (273-304)
[2019-09-02] MEDS ORDERED: FLUCONAZOLE 100 MG TABLET PO ONE (11:00)
[2019-09-02] MEDS: POTASSIUM CHLORIDE 20 MEQ TABLET PO SCH ×2 (16:27→21:18)
[2019-09-02] MEDS: SIMVASTATIN 10 MG TABLET PO SCH (21:18)
[2019-09-03] MEDS: VANCOMYCIN 50 MG/ML 60 ML/BOTTLE PO SCH ×4 (00:47→18:10)
[2019-09-03] MEDS: metroNIDAZOLE INJ 500 MG in PREMIX 1 EACH IV SCH (05:42)
[2019-09-03] MEDS: LEVOTHYROXINE 75 MCG TABLET PO SCH (05:52)
[2019-09-03] MEDS: HEPARIN 5,000 UNIT/1 ML VIAL SUBCUT SCH ×2 (09:50→20:05)
[2019-09-03] MEDS: POTASSIUM CHLORIDE 20 MEQ TABLET PO SCH ×3 (09:50→20:05)
[2019-09-03] MEDS: PANTOPRAZOLE 40 MG TABLET PO SCH (09:50)
[2019-09-03] MEDS: DEXT 5% NACL 0.9% KCL 20 MEQ 20 MEQ/1,000 ML BAG IV SCH (09:50)
[2019-09-03] MEDS: SODIUM CHLORIDE 1 GM TABLET PO SCH ×3 (09:51→20:05)
[2019-09-03 10:36] LABS: Alanine Aminotransferase 12 U/L (13-56); Albumin 1.6 G/DL (3.4-5.0); Alkaline Phosphatase 45 U/L (45-117); Aspartate Amino Transferase 4 U/L (0-37); Bilirubin,Total < 0.39 MG/DL (0.2-1.0); Blood Urea Nitrogen 2 MG/DL (7-18); Calcium 7.7 MG/DL (8.5-10.1); Estimated Glom Filtration Rate 89 ML/MIN; Glucose 144 MG/DL (74-106); Osmolality,Calculated 271.8 MOS/KG (273-304); Total Protein 4.6 G/DL (6.4-8.3)
[2019-09-03] MEDS: FLUCONAZOLE 100 MG TABLET PO SCH (12:54)
[2019-09-03] MEDS: SIMVASTATIN 10 MG TABLET PO SCH (20:05)
[2019-09-04] MEDS: VANCOMYCIN 50 MG/ML 60 ML/BOTTLE PO SCH ×3 (00:30→12:30)
[2019-09-04] MEDS: DEXT 5% NACL 0.9% KCL 20 MEQ 20 MEQ/1,000 ML BAG IV SCH (05:36)
[2019-09-04] MEDS: LEVOTHYROXINE 75 MCG TABLET PO SCH (05:40)
[2019-09-04 06:31] LABS: Albumin 1.5 G/DL (3.4-5.0); Bilirubin,Total 1.1 MG/DL (0.2-1.0); Calcium 7.1 MG/DL (8.5-10.1); Osmolality,Calculated 273.5 MOS/KG (273-304); Total Protein 4.2 G/DL (6.4-8.3)
[2019-09-04] MEDS ORDERED: POTASSIUM CHLORIDE 20 MEQ TABLET PO ONE (07:13)
[2019-09-04] MEDS: POTASSIUM CHLORIDE RIDER 10 MEQ in PREMIX 1 EACH IV PRN ×2 (08:04→09:00)
[2019-09-04] MEDS: HEPARIN 5,000 UNIT/1 ML VIAL SUBCUT SCH (09:22)
[2019-09-04] MEDS: FLUCONAZOLE 100 MG TABLET PO SCH (09:22)
[2019-09-04] MEDS: POTASSIUM CHLORIDE 20 MEQ TABLET PO SCH (09:23)
[2019-09-04] MEDS: PANTOPRAZOLE 40 MG TABLET PO SCH (09:23)
[2019-09-04 10:52] LABS: Alanine Aminotransferase 9 U/L (13-56); Albumin 1.8 G/DL (3.4-5.0); Alkaline Phosphatase 43 U/L (45-117); Aspartate Amino Transferase 9 U/L (0-37); Bilirubin,Total < 0.39 MG/DL (0.2-1.0); Blood Urea Nitrogen 1 MG/DL (7-18); Calcium 7.2 MG/DL (8.5-10.1); Estimated Glom Filtration Rate 91 ML/MIN; Glucose 178 MG/DL (74-106); Osmolality,Calculated 274.7 MOS/KG (273-304); Total Protein 4.8 G/DL (6.4-8.3)
[2019-09-04 14:04] VITALS: BP 99/38
== END 2019-09-04 13:34 | DRG 372 ==
LOC: N.ED 17:06 → N.EDINP 20:27 → N.2E 08-31 08:12
PROVIDERS: ADMIT Internal Medicine; ATTEND Internal Medicine